=== PATIENT | male | born 1965 | race Two or more races ===

== ENCOUNTER 2017-10-17 11:10 | Outpatient (CLI) | payer OTHER | END 2017-10-17 17:58 | disposition home or self-care (01) | LOC: NUCLEAR 11:10 | DX: I20.1 Angina pectoris with documented spasm (principal) ==

== ENCOUNTER 2020-04-22 13:55 | Outpatient (CLI) | payer OTHER | END 2020-04-22 14:04 | disposition home or self-care (01) | LOC: RAD 13:55 | PROVIDERS: ATTEND Otolaryngology Otology & Neurotology | DX: J44.1 Chronic obstructive pulmonary disease with (acute) exacerbation (principal) ==

== ENCOUNTER 2020-04-29 10:24 | Outpatient (CLI) | payer OTHER | END 2020-04-29 10:50 | disposition home or self-care (01) | LOC: SONOGRAMA 10:24 → MAMO-SONO 10:30 → SONOGRAMA 10:50 → MAMO-SONO 05-11 07:15 | PROVIDERS: ATTEND Otolaryngology Otology & Neurotology | DX: K76.0 Fatty (change of) liver, not elsewhere classified (principal) ==

== ENCOUNTER 2020-05-30 14:22 | Outpatient (CLI) | payer OTHER | END 2020-05-30 14:23 | disposition home or self-care (01) | LOC: PPH VACUNA 14:22 | DX: Z23 Encounter for immunization (principal) ==

== ENCOUNTER 2022-03-13 16:04 | Outpatient (CLI) | payer OTHER | END 2022-03-13 16:11 | disposition home or self-care (01) | LOC: RAD 16:04 | PROVIDERS: ATTEND Internal Medicine | DX: J42 Unspecified chronic bronchitis (principal); F17.200 Nicotine dependence, unspecified, uncomplicated ==

== ENCOUNTER 2022-09-03 15:48 | Outpatient (CLI) | payer OTHER | END 2022-09-03 15:58 | disposition home or self-care (01) | LOC: RAD 15:48 | PROVIDERS: ATTEND Orthopaedic Surgery | DX: M25.562 Pain in left knee (principal) ==

== ENCOUNTER 2024-04-11 10:42 | Outpatient (CLI) | payer OTHER | END 2024-04-11 10:52 | disposition home or self-care (01) | LOC: RAD 10:42 | PROVIDERS: ATTEND Psychiatry & Neurology Neurodevelopmental Disabilities | DX: M25.521 Pain in right elbow (principal); M79.601 Pain in right arm; M25.511 Pain in right shoulder ==